=== PATIENT | male | born 1970 | race Two or more races ===

== ENCOUNTER 2017-07-29 10:56 | Outpatient (CLI) | payer OTHER ==
[~2017-07-29 10:56] MED LIST: CLONAZEPAM0.5 MG; LEVAQUIN500 MG; LISINOPRIL5 MG; TOPROL XL25 MG
== END 2017-07-29 11:06 | disposition home or self-care (01) ==
LOC: SONOGRAMA 10:56
DX: M75.51 Bursitis of right shoulder (principal); M15.0 Primary generalized (osteo)arthritis

== ENCOUNTER 2019-07-10 13:20 | Emergency (ER) | payer OTHER ==
[~2019-07-10] VITALS: Ht 188 cm; Wt 127.0 kg
[2019-07-10] MEDS ORDERED: PRISTIQ ER100 MG PO (13:31)
[2019-07-10] MEDS ORDERED: METOPROLOL PO (13:36)
== END 2019-07-10 18:14 | disposition home or self-care (01) ==
LOC: ER 13:20
DX: K29.60 Other gastritis without bleeding (principal)